=== PATIENT | male | born 1995 | race Hispanic/Latino ===

== ENCOUNTER 2019-11-06 22:26 | Emergency (ER) | payer BC ==
[2019-11-06] MEDS ORDERED: ONDANSETRON 4 MG/2 ML VIAL ONE ×2 (22:42→22:53)
[2019-11-06] MEDS ORDERED: CEFAZOLIN/SWI 1gm 1 GM/10 ML SYR ONE (23:03)
[2019-11-06] MEDS ORDERED: TETANUS & DIPHTHERIA TOX,ADULT 0.5 ML VIAL ONE (23:03)
[2019-11-06] MEDS ORDERED: THIAMINE 200 MG/2 ML INJ ONE (23:03)
[2019-11-06] MEDS ORDERED: NA CHLORIDE 0.9% 100 ML IV ONE (23:03)
[2019-11-06] MEDS ORDERED: NA CHLORIDE 0.9% 1,000 ML ONE (23:04)
[2019-11-06] MEDS ORDERED: PROMETHAZINE 25 MG/ML VIAL ONE (23:19)
[2019-11-06] MEDS ORDERED: PANTOPRAZOLE 40 MG INJ ONE (23:19)
[2019-11-06] MEDS ORDERED: LIDOCAINE 1% MPF 30 ML VIAL ONE (23:21)
[2019-11-06 23:36] LABS: Absolute Lymphocytes (CBC) 2.2 K/uL (0.7-4.9); Basophils % 0.4 % (0-1.3); Hematocrit 39.7 % (39.6-49.0); Lymphocytes % 19.6 % (15.3-44.8); MPV 8.7 fL (7.6-11.3); RBC Red Blood Cell Count 4.55 M/uL (4.33-5.43)
[2019-11-06 23:40] LABS: Protime INR 1.03
[2019-11-07 00:46] LABS: ALT/SGPT 27 U/L (12-78); AST/SGOT 23 U/L (15-37); Albumin 4.1 g/dL (3.4-5.0); Alkaline Phosphatase 99 U/L (45-117); BUN Blood Urea Nitrogen 12 mg/dL (7-18); Bicarbonate 23 mmol/L (21-32); Bilirubin Direct 0.2 mg/dL (0-0.2); Bilirubin Total 0.7 mg/dL (0.2-1.0); Glucose Level 95 mg/dL (74-106); Potassium 3.1 mmol/L (3.5-5.1); Protein, Total 7.1 g/dL (6.4-8.2); Sodium Level 140 mmol/L (136-145)
--- NOTE | 2019-11-07 01:53 | ER ---
Nurse's Notes [facility] Name: Benjamin Salas Age: 24 yrs Sex: Male : 1995 Arrival Date: 11/06/2019 Time: 22:33 Bed 3 Private MD: Diagnosis: Alcohol abuse with intoxication;Laceration without foreign body of other part of head-UPPER LIP;Fracture of tooth (traumatic);Hypokalemia Presentation: 11/06 22:46 Presenting complaint: Father states: "he was at a wedding and he probably drank to [facility] much. he ended up falling forward and hitting his head and lip on the table then fell backwards hitting the back of his head. he never lost consciousness, but did start throwing up. I think he swallowed some blood from his lip.". Transition of care: patient was not received from another setting of care. Onset of symptoms was November 06, 2019. Risk Assessment: Do you want to hurt yourself or someone else? Patient reports no desire to harm self or others. Initial Sepsis Screen: Does the patient meet any 2 criteria? No. Patient's initial sepsis screen is negative. Does the patient have a suspected source of infection? No. Patient's initial sepsis screen is negative. Care prior to arrival: None. 22:46 Method Of Arrival: Wheelchair jd3 22:46 Acuity: ANDRES 3 jd3 Historical: - Allergies: 22:49 No Known Allergies; jd3 - Home Meds: 22:49 None [Active]; jd3 - PMHx: 22:49 None; jd3 - PSHx: 22:49 None; jd3 - Immunization history:: Adult Immunizations up to date. - Social history:: Smoking status: Patient/guardian denies using tobacco. - Ebola Screening: : Patient negative for fever greater than or equal to 101.5 degrees Fahrenheit, and additional compatible Ebola Virus Disease symptoms. - Family history:: not pertinent. Screenin/21 00:03 Abuse screen: Denies threats or abuse. Nutritional screening: No deficits noted. jd3 Tuberculosis screening: No symptoms or risk factors identified. Fall Risk IV access (20 points). Ambulatory Aid- None/Bed Rest/Nurse Assist (0 pts). Gait- Weak (10 pts.). Mental Status- Overestimates/Forgets Limitations (15 pts.). Total Monte Fall Scale indicates High Risk Score (45 or more points). Fall prevention measures have been instituted. Side Rails Up X 2 Placed Close to Nursing Station Frequent Obs/Assessments Occuring Family Present and informed to notify staff if the need to leave the bedside. Assessment: 11/06 22:49 General: Appears in no apparent distress. uncomfortable, Behavior is calm, cooperative, jd3 drowsy, Smells of alcohol, pt states: "I drank a few beers.". Pain: Denies pain. Neuro: Level of Consciousness is awake, obeys commands, drowsy. Oriented to person, place, time, situation, Denies blurred vision dizziness, numbness headache diplopia. Cardiovascular: Denies chest pain, Capillary refill < 3 seconds Patient's skin is warm and dry. Respiratory: Airway is patent Respiratory effort is even, unlabored, Respiratory pattern is regular, symmetrical, Denies cough, shortness of breath. GI: Abdomen is non-distended, Abd is soft and non tender X 4 quads. Reports nausea, vomiting, Patient currently denies diarrhea. : No signs and/or symptoms were reported regarding the genitourinary system. EENT: chipped tooth noted to left front tooth and laceration noted to the middle of the upper lip. Derm: Skin is intact, Skin is dry, Skin is normal, Skin temperature is warm Wound noted upper lip. Musculoskeletal: Circulation, motion, and sensation intact. Range of motion: intact in all extremities. Injury Description: Laceration sustained to upper lip is clean, 0.5 to 2.5 cm long, a small amount of bleeding noted at this time. 23:30 Reassessment: Patient appears in no apparent distress at this time. Patient and/or jd3 family updated on plan of care and expected duration. Pain level reassessed. pt A\\T\\O X 4. awake and drowsy. even and unlabored respirations. awaiting CT results. family at bedside. 11/07 00:06 Reassessment: Patient appears in no apparent distress at this time. No changes from jd3 previously documented assessment. Patient and/or family updated on plan of care and expected duration. Pain level reassessed. 00:53 Reassessment: Patient appears in no apparent distress at this time. Patient and/or jd3 family updated on plan of care and expected duration. Pain level reassessed. pt resting with eyes closed, even and unlabored respirations. family at bedside. rails up X 2. call saldana in reach. no signs of nausea or vomiting. 01:19 Reassessment: assisted pt with using the restroom with a urinal in at bedside. jd3 01:46 Reassessment: Patient appears in no apparent distress at this time. No changes from j previously documented assessment. Patient and/or family updated on plan of care and expected duration. Pain level reassessed. awaiting results and disposition. 02:31 Reassessment: Patient appears in no apparent distress at this time. Patient and/or jd3 family updated on plan of care and expected duration. Pain level reassessed. Patient is alert, oriented x 3, equal unlabored respirations, skin warm/dry/pink. pt and family reported understanding of discharge instructions. Neuro: Level of Consciousness is awake, alert, obeys commands, Oriented to person, place, time, situation. Vital Signs: 11/06 22:45 BP 107 / 73; Pulse 97; Resp 17 S; Pulse Ox 97% on R/A; Weight 68.04 kg (R); Height 5 jd3 ft. 10 in. (177.80 cm) (R); Pain 0/10; 11/07 00:02 BP 95 / 61; Pulse 99; Resp 18 S; Pulse Ox 99% on R/A; jd3 00:55 BP 104 / 57; Pulse 99; Resp 19 S; Pulse Ox 97% on R/A; jd3 02:31 BP 98 / 65; Pulse 93; Resp 17 S; Pulse Ox 100% on R/A; Pain 0/10; jd3 11/06 22:45 Body Mass Index 21.52 (68.04 kg, 177.80 cm) jd3 Kezia Coma Score: 11/06 22:55 Eye Response: to voice(3). Verbal Response: confused(4). Motor Response: localizes fifi pain(5). Total: 12. ED Course: 22:33 Patient arrived in ED. cf2 22:43 Trenton Pulido RN is Primary Nurse. jd3 22:45 Inserted saline lock: 20 gauge in left forearm, using aseptic technique. jd3 22:48 Triage completed. jd3 22:48 Carlos Brooks MD is Attending Physician. fifi 22:49 Arm band placed on. jd3 23:32 Assist provider with laceration repair on upper lip that was 2.5 cm. or less using jd3 sutures. Set up tray. Performed by Carlos Brooks MD Patient tolerated well. 11/07 00:03 Patient has correct armband on for positive identification. Placed in gown. Bed in low jd3 position. Call light in reach. Side rails up X2. Adult w/ patient. 01:00 Head C Spine Mpr Wo Con In Process Unspecified. EDMS 01:51 Maximo Cary DDS is Referral Physician. fifi 02:32 IV discontinued, intact, bleeding controlled, No redness/swelling at site. Pressure jd3 dressing applied. Administered Medications: 11/06 22:45 Drug: Zofran 4 mg Route: IVP; Site: left forearm; jd3 23:45 Follow up: Response: No adverse reaction j 22:58 Drug: Zofran 4 mg Route: IVP; Site: left forearm; jd3 23:55 Follow up: Response: No adverse reaction [facility] 23:20 Drug: NS 0.9% 1000 ml Route: IV; Rate: 1 bolus; Site: left forearm; 1 11/07 00:30 Follow up: Response: No adverse reaction; IV Status: Completed infusion; IV Intake: jd3 1000ml 11/06 23:20 Drug: Phenergan 6.25 mg Route: IVP; Site: left forearm; 1 11/07 00:20 Follow up: Response: No adverse reaction [facility] 11/06 23:20 Drug: ProTONIX 40 mg Route: IVP; Site: left forearm; 1 11/07 00:20 Follow up: Response: No adverse reaction [facility] 11/06 23:28 Drug: Ancef 1 grams Route: IVPB; Site: left forearm; [facility] 11/07 00:25 Follow up: Response: No adverse reaction; IV Status: Completed infusion [facility] 11/06 23:31 Drug: Thiamine 100 mg Route: IV; Rate: bolus; Site: left forearm; [facility] 11/07 00:30 Follow up: Response: No adverse reaction; IV Status: Completed infusion [facility] 11/06 23:32 Drug: Lidocaine (1 %) 1 vials Volume: 20 ml; Route: Infiltration; [facility] 11/07 01:18 Follow up: Response: No adverse reaction [facility] 11/06 23:37 Drug: Tetanus-Diphtheria Toxoid Adult 0.5 ml {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 Exp: jd3 04/23/2021. Lot #: [id number]. } Route: IM; Site: right deltoid; 11/07 00:35 Follow up: Response: No adverse reaction jd3 02:20 Drug: Potassium Effervescent Tablet 25 mEq Route: PO; jd3 02:30 Follow up: Response: Medication administered at discharge. jd3 02:31 Not Given (Physician Discretion): Phenergan 6.25 mg IVP once jd3 Intake: 00:30 IV: 1000ml; Total: 1000ml. jd3 Outcome: 01:51 Discharge ordered by . fifi 02:32 Discharged to home via wheelchair, with family. jd3 02:32 Condition: stable 02:32 Discharge instructions given to patient, family, Instructed on discharge instructions, follow up and referral plans. medication usage, Demonstrated understanding of instructions, follow-up care, medications, Prescriptions given X 3. 02:32 Patient left the ED. jd3 Signatures: Dispatcher [employer] EDMS Carlos Brooks MD MD cha Pena, Laura, RN RN lp1 Trenton Pulido RN RN jd3 Giselle Durán cf2 Corrections: (The following items were deleted from the chart) 02:35 11/06 22:49 EENT: chipped tooth noted and laceration noted to upper lip. jd3 jd3
--- NOTE | 2019-11-07 01:54 | EDPHYS ---
Physician Documentation [facility] Name: Benjamin Salas Age: 24 yrs Sex: Male : 1995 Arrival Date: 11/06/2019 Time: 22:33 Bed 3 Private MD: ED Physician Carlos Brooks HPI: 11/06 22:55 This 24 yrs old Male presents to ER via Wheelchair with complaints of DRUNK, fifi PASSED OUT, FACE TRAUMA. 22:55 The patient or guardian reports a laceration, 2.5 cm(s), pain. The complaints affect fifi the mouth. Context of injury: The problem was sustained on a street or driveway. Onset: The symptoms/episode began/occurred just prior to arrival. Associated signs and symptoms: The patient has no apparent associated signs or symptoms, Loss of consciousness: This patient experience a loss of consciousness, Pertinent positives: patient admits to or smells of alcohol consumption, vomiting. The patient presents to the emergency department with nausea, vomiting, that is continuous, described as undigested food. Onset: The symptoms/episode began/occurred just prior to arrival. Possible causes: ETOH. The symptoms are aggravated by nothing. The symptoms are alleviated by nothing. Historical: - Allergies: 22:49 No Known Allergies; jd3 - Home Meds: 22:49 None [Active]; jd3 - PMHx: 22:49 None; jd3 - PSHx: 22:49 None; jd3 - Immunization history:: Adult Immunizations up to date. - Social history:: Smoking status: Patient/guardian denies using tobacco. - Ebola Screening: : Patient negative for fever greater than or equal to 101.5 degrees Fahrenheit, and additional compatible Ebola Virus Disease symptoms. - Family history:: not pertinent. ROS: 23:03 Constitutional: Negative for fever, chills, and weight loss, Eyes: Negative for injury, fifi pain, redness, and discharge, Neck: Negative for injury, pain, and swelling, Cardiovascular: Negative for chest pain, palpitations, and edema, Respiratory: Negative for shortness of breath, cough, wheezing, and pleuritic chest pain, Abdomen/GI: Negative for abdominal pain, nausea, vomiting, diarrhea, and constipation, Back: Negative for injury and pain, : Negative for injury, bleeding, discharge, and swelling, MS/Extremity: Negative for injury and deformity, Skin: Negative for injury, rash, and discoloration, Neuro: Negative for headache, weakness, numbness, tingling, and seizure, Psych: Negative for depression, anxiety, suicide ideation, homicidal ideation, and hallucinations, Allergy/Immunology: Negative for hives, rash, and allergies, Endocrine: Negative for neck swelling, polydipsia, polyuria, polyphagia, and marked weight changes, Hematologic/Lymphatic: Negative for swollen nodes, abnormal bleeding, and unusual bruising. 23:03 ENT: Positive for UPPER LIP LACERATION. Exam: 23:03 Constitutional: This is a well developed, well nourished patient who is awake, alert, fifi and in no acute distress. Eyes: Pupils equal round and reactive to light, extra-ocular motions intact. Lids and lashes normal. Conjunctiva and sclera are non-icteric and not injected. Cornea within normal limits. Periorbital areas with no swelling, redness, or edema. ENT: Nares patent. No nasal discharge, no septal abnormalities noted. Tympanic membranes are normal and external auditory canals are clear. Oropharynx with no redness, swelling, or masses, exudates, or evidence of obstruction, uvula midline. Mucous membranes moist. Neck: Trachea midline, no thyromegaly or masses palpated, and no cervical lymphadenopathy. Supple, full range of motion without nuchal rigidity, or vertebral point tenderness. No Meningismus. Chest/axilla: Normal chest wall appearance and motion. Nontender with no deformity. No lesions are appreciated. Cardiovascular: Regular rate and rhythm with a normal S1 and S2. No gallops, murmurs, or rubs. Normal PMI, no JVD. No pulse deficits. Respiratory: Lungs have equal breath sounds bilaterally, clear to auscultation and percussion. No rales, rhonchi or wheezes noted. No increased work of breathing, no retractions or nasal flaring. Abdomen/GI: Soft, non-tender, with normal bowel sounds. No distension or tympany. No guarding or rebound. No evidence of tenderness throughout. Back: No spinal tenderness. No costovertebral tenderness. Full range of motion. Male : Normal genitalia with no discharge or lesions. Skin: Warm, dry with normal turgor. Normal color with no rashes, no lesions, and no evidence of cellulitis. MS/ Extremity: Pulses equal, no cyanosis. Neurovascular intact. Full, normal range of motion. Neuro: Awake and alert, GCS 15, oriented to person, place, time, and situation. Cranial nerves II-XII grossly intact. Motor strength 5/5 in all extremities. Sensory grossly intact. Cerebellar exam normal. Normal gait. Psych: Awake, alert, with orientation to person, place and time. Behavior, mood, and affect are within normal limits. 23:03 Head/face: Noted is a laceration(s), that is deep, 2 cm(s), of the upper lip. Vital Signs: 22:45 BP 107 / 73; Pulse 97; Resp 17 S; Pulse Ox 97% on R/A; Weight 68.04 kg (R); Height 5 jd3 ft. 10 in. (177.80 cm) (R); Pain 0/10; 11/07 00:02 BP 95 / 61; Pulse 99; Resp 18 S; Pulse Ox 99% on R/A; jd3 00:55 BP 104 / 57; Pulse 99; Resp 19 S; Pulse Ox 97% on R/A; jd3 02:31 BP 98 / 65; Pulse 93; Resp 17 S; Pulse Ox 100% on R/A; Pain 0/10; jd3 11/06 22:45 Body Mass Index 21.52 (68.04 kg, 177.80 cm) jd3 Kezia Coma Score: 11/06 22:55 Eye Response: to voice(3). Verbal Response: confused(4). Motor Response: localizes fifi pain(5). Total: 12. Laceration: 23:33 Wound Repair of 1cm ( 0.4in ) subcutaneous laceration to upper lip. Irregularly fifi shaped.. Skin/tissue flap noted.. Minimal bleeding noted.. Distal neuro/vascular/tendon intact. Anesthesia: Local anesthetic administered with 3 mls of 1% lidocaine. Wound prep: Simple cleansing by me. Skin closed with 3 6-0 Prolene using interrupted sutures and sterile technique. Dressed with Neosporin. Patient tolerated well. MDM: 22:48 Patient medically screened. [facility] 23:04 Data reviewed: vital signs, nurses notes, lab test result(s), EKG, radiologic studies, [facility] CT scan. 11/06 23:27 Order name: Basic Metabolic Panel; Complete Time: 01:50 EDMS 11/06 23:27 Order name: Liver (Hepatic) Function; Complete Time: 01:50 EDMS 11/06 23:27 Order name: Acetaminophen Level; Complete Time: :50 EDPR 11/06 23:27 Order name: Alcohol Serum/Plasma; Complete Time: :23 EDMS 11/06 23:27 Order name: Salicylates Level; Complete Time: 01:23 EDMS 11/06 23:27 Order name: CBC with Automated Diff; Complete Time: :23 EDPR 11/06 23:27 Order name: Protime (+INR); Complete Time: :23 EDPR 11/06 23:27 Order name: PTT, Activated Partial Thromb; Complete Time: : EDPR 11/07 00:01 Order name: Head C Spine Mpr Wo Con EDPR 11/07 01:16 Order name: Urine Dipstick--Ancillary (enter results) [facility] 11/07 02:04 Order name: Urine Drug Screen [facility] 11/06 22:44 Order name: IV; Complete Time: 22:44 [facility] 11/06 22:54 Order name: EKG; Complete Time: 02:31 [facility] 11/06 22:54 Order name: EKG - Nurse/Tech; Complete Time: 23:06 [facility] 11/06 22:54 Order name: IV Saline Lock; Complete Time: 22:59 [facility] 11/06 22:54 Order name: Labs collected and sent; Complete Time: 23:30 [facility] 11/06 22:54 Order name: Urine Dipstick-Ancillary (obtain specimen); Complete Time: 01:16 [facility] Administered Medications: 22:45 Drug: Zofran 4 mg Route: IVP; Site: left forearm; jd3 23:45 Follow up: Response: No adverse reaction jd3 22:58 Drug: Zofran 4 mg Route: IVP; Site: left forearm; jd3 23:55 Follow up: Response: No adverse reaction j 23:20 Drug: NS 0.9% 1000 ml Route: IV; Rate: 1 bolus; Site: left forearm; lp1 11/07 00:30 Follow up: Response: No adverse reaction; IV Status: Completed infusion; IV Intake: jd3 1000ml 11/06 23:20 Drug: Phenergan 6.25 mg Route: IVP; Site: left forearm; lp1 11/07 00:20 Follow up: Response: No adverse reaction j 11/06 23:20 Drug: ProTONIX 40 mg Route: IVP; Site: left forearm; lp1 11/07 00:20 Follow up: Response: No adverse reaction jd3 11/06 23:28 Drug: Ancef 1 grams Route: IVPB; Site: left forearm; jd3 11/07 00:25 Follow up: Response: No adverse reaction; IV Status: Completed infusion j 11/06 23:31 Drug: Thiamine 100 mg Route: IV; Rate: bolus; Site: left forearm; jd3 11/07 00:30 Follow up: Response: No adverse reaction; IV Status: Completed infusion j 11/06 23:32 Drug: Lidocaine (1 %) 1 vials Volume: 20 ml; Route: Infiltration; [facility] 11/07 01:18 Follow up: Response: No adverse reaction [facility] 11/06 23:37 Drug: Tetanus-Diphtheria Toxoid Adult 0.5 ml {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 Exp: jd3 04/23/2021. Lot #: [id number]. } Route: IM; Site: right deltoid; 11/07 00:35 Follow up: Response: No adverse reaction jd3 02:20 Drug: Potassium Effervescent Tablet 25 mEq Route: PO; jd3 02:30 Follow up: Response: Medication administered at discharge. jd3 02:31 Not Given (Physician Discretion): Phenergan 6.25 mg IVP once jd3 Disposition: 11/07/19 01:51 Discharged to Home. Impression: Alcohol abuse with intoxication, Laceration without foreign body of other part of head - UPPER LIP, Fracture of tooth (traumatic), Hypokalemia. - Condition is Stable. - Discharge Instructions: Alcohol Intoxication, Potassium Content of Foods, Facial Laceration, Tooth Injuries, Alcohol Intoxication, Ojln-od-[id number], Alcohol Abuse and Nutrition, Facial Laceration, Bqdv-sr-Njjn, Tooth Injuries, Pihc-ev-Baxp, Hypokalemia. - Prescriptions for Keflex 500 mg Oral Capsule - take 1 capsule by ORAL route every 6 hours for 10 days; 40 capsule. Zofran 4 mg Oral Tablet - take 1 tablet by ORAL route every 12 hours As needed; 20 tablet. Protonix 40 mg Oral Tablet, Delayed Release (E.C.) - take 1 tablet by ORAL route once daily; 20 tablet. - Medication Reconciliation Form, Thank You Letter, Antibiotic Education, Prescription Opioid Use form. - Follow up: Private Physician; When: 2 - 3 days; Reason: Recheck today's complaints, Continuance of care, Re-evaluation by your physician. Follow up: Maximo Cary; When: 2 - 3 days; Reason: Recheck today's complaints, Continuance of care, Re-evaluation by your physician. - Problem is new. - Symptoms have improved. Signatures: Dispatcher [employer] EDMS Carlos Brooks MD MD cha Pena, Laura RN RN lp1 Trenton Pulido RN RN jd3 Corrections: (The following items were deleted from the chart) 02:32 01:51 11/07/2019 01:51 Discharged to Home. Impression: Alcohol abuse with intoxication; jd3 Laceration without foreign body of other part of head - UPPER LIP; Fracture of tooth (traumatic); Hypokalemia. Condition is Stable. Discharge Instructions: Alcohol Intoxication, Facial Laceration, Tooth Injuries, Alcohol Intoxication, Tnid-zn-Vffa, Alcohol Abuse and Nutrition, Facial Laceration, Yexg-hp-Ngdo, Tooth Injuries, Kyqi-os-Yuzn. Prescriptions for Keflex 500 mg Oral Capsule - take 1 capsule by ORAL route every 6 hours for 10 days; 40 capsule, Zofran 4 mg Oral Tablet - take 1 tablet by ORAL route every 12 hours As needed; 20 tablet, Protonix 40 mg Oral Tablet, Delayed Release (E.C.) - take 1 tablet by ORAL route once daily; 20 tablet. and Forms are Medication Reconciliation Form, Thank You Letter, Antibiotic Education, Prescription Opioid Use. Follow up: Private Physician; When: 2 - 3 days; Reason: Recheck today's complaints, Continuance of care, Re-evaluation by your physician. Follow up: Maximo Cary; When: 2 - 3 days; Reason: Recheck today's complaints, Continuance of care, Re-evaluation by your physician. Problem is new. Symptoms have improved. fifi
[2019-11-07 02:14] LABS: Barbiturates NEGATIVE (NEGATIVE); Benzodiazepines NEGATIVE (NEGATIVE); Cocaine NEGATIVE (NEGATIVE); METHAMPHETAM NEGATIVE (NEGATIVE); Methadone NEGATIVE (NEGATIVE); Opiates NEGATIVE (NEGATIVE); Phencyclidine NEGATIVE (NEGATIVE); THC Cannibis NEGATIVE (NEGATIVE)
[2019-11-07] MEDS ORDERED: POTASSIUM 25 MEQ EFFERV TAB ONE (02:16)
[2019-11-07 02:45] LABS: Urine Blood TRACE (NEG); Urine Glucose NEGATIVE (NEG); Urine Protein NEGATIVE (NEG); Urine Specific Gravity 1.015 (1.005-1.030)
[2019-11-07 14:19] VITALS: BP 98/65; O2SAT 100
--- NOTE | 2019-11-07 15:31 | EKG ---
Test Date: 2019-11-06 Test Time: 23:51:08 Executive Housekeeper: FABIANO MEASUREMENT RESULTS: Intervals: Rate: 113 MD: 134 QRSD: 72 QT: 340 QTc: 466 [place]: P: 66 MD: 134 QRS: 85 T: 54 INTERPRETIVE STATEMENTS: Sinus tachycardia Otherwise normal ECG No previous ECG available for comparison Electronically Signed On 11-07-19 15:30:43 ROLLER EMBOSSER by Rodger Ruth
--- NOTE | 2019-11-09 11:34 | RAD REPORT ---
EXAM DESCRIPTION: CT - Head C Spine Mpr Wo Con - 11/07/2019 2:01 am CLINICAL HISTORY: The patient is 24 years old and is Male; PAIN TECHNIQUE: Axial computed tomography images of the head/brain and cervical spine without intravenous contrast. Sagittal and coronal reformatted images were created and reviewed. This CT exam was pe rformed using one or more of the following dose reduction techniques: automated exposure control, a djustment of the mA and/or kV according to patient size, and/or use of iterative reconstruction techn ique. COMPARISON: No relevant prior studies available. FINDINGS: ARTIFACTS: The exam is suboptimal secondary to motion artifact. Evaluation of C5-C6 is l imited secondary to motion at the levels. BRAIN: Unremarkable. No hemorrhage. No significant white matter disease. No edema. VENTRICLES: Unremarkable. No ventriculomegaly. SKULL: No acute fracture. SINUSES: Unremarkable as visualized. No acute sinusitis. MASTOID AIR CELLS: Unremarkable as visualized. No mastoid effusion. VERTEBRAE: The vertebral body heights and alignment are maintained. No acute fracture. DISCS/SPINAL CANAL/NEURAL FORAMINA: The intervertebral disc spaces are maintained. No spinal dennis nosis. SOFT TISSUES: The soft tissues are normal. LUNG APICES: The lung apices are clear. IMPRESSION: 1. No acute intracranial findings. 2. No obvious fracture or malalignment of the cervical spine. Limited as described. Electronically signed by: Jessica Purcell MD 11/07/2019 12:47 AM NURSING STUDENT Due to temporary technical issues with the PACS/Fluency reporting system, reports are being signed by the in house radiologist as a courtesy to ensure prompt reporting. The interpreting radiologist is f ully responsible for the content of the report.
== END 2019-11-07 02:32 | disposition home or self-care (01) ==
LOC: ER 22:26
PROC: 0CQ0XZZ Repair Upper Lip, External Approach (ICD-10-PCS; principal; 2019-11-07)
DX: S01.511A Laceration without foreign body of lip, initial encounter (principal); S02.5XXA Fracture of tooth (traumatic), initial encounter for closed fracture; E87.6 Hypokalemia; F10.129 Alcohol abuse with intoxication, unspecified; W18.30XA Fall on same level, unspecified, initial encounter; Y93.89 Activity, other specified; Y92.89 Other specified places as the place of occurrence of the external cause; Z23 Encounter for immunization
CPT/HCPCS: 96365; 96368; 93005; 85025; 80048; 36415; 80320; 80329 ×2; 85610; 80076; 80307 ×8; 85730; 81003; 70450; 72125; 90471; 90714; 96375; 99284; 12011; J2550; J3411; C9113; J0690; J7030; J2405 ×2